=== PATIENT | male | born 1965 | race Caucasian/White ===

== ENCOUNTER 2018-06-21 06:20 | Day surgery (SDC) | payer OTHER, SELFPAY ==
[2018-06-21 06:52] VITALS: BP 142/87; PULSE 76; RESP 16; TEMP 36; BMI 34.5
[2018-06-21] MEDS: SODIUM CHLORIDE 0.9% 1,000 ML 200 ML IV (08:00)
--- NOTE | 2018-06-21 08:12 | PM.HP.1 ---
History of Present Illness Date Patient Seen: 06/21/18 Time Patient Seen: 08:12 Chief complaint: colonoscopy [id number] Narrative: Patient is a gentleman who just turned 53. He is here for screening colonoscopy. He has never had 1. No family history colon cancer. Patient History Medical History Essential hypertension with goal blood pressure less than 130/85 (Chronic) Surgical History History of cataract extraction with lens replacement (Resolved) History of vasectomy (Resolved) Family & Social History Social History: household members spouse Former smoker Meds Home Medications Medication Instructions Recorded Confirmed Type lisinopril 10 mg PO DAILY 06/21/18 06/21/18 History Allergies Allergy/AdvReac Type Severity Reaction Status Date / Time No Known Drug Allergies Allergy Verified 06/21/18 07:11 Review of Systems Review of Systems All systems reviewed & are unremarkable except as noted in HPI and below Exam Vital Signs (past 8 hours): - 06/21/18 06:52 Temperature 96.8 F L Pulse Rate 76 Respiratory Rate 16 Blood Pressure 142/87 H Oxygen Delivery Method Room Air Narrative Exam Narrative: Operative no apparent distress. Eyes nonicteric. Pupils equal round reactive to light. Lungs are clear to auscultation without rales or rhonchi. Heart regular rate and rhythm without murmur gallop. Abdomen is protuberant soft nontender without mass. Small skin tags on right buttock the patient would like to have removed. Alert and oriented x3. Assessment & Plan (1) Screening for colon cancer: Current visit: Yes Status: Acute Plan: Assessment/Plan Narrative: Here for screening colonoscopy. I have discussed the procedure and the rationale with the patient including risks of bleeding, perforation which would necessitate a major operation, failure to find remove all lesions and the potential to tattoo. They appeared to understand and wished to proceed.
--- NOTE | 2018-06-21 08:17 | PM.PREOP ---
Pre-operative Note Interval Note Pre-op Check: Yes History & Physical exam performed today by Physician Changes: No ASA Class (for procedural sedation): II
[2018-06-21] MEDS: MIDAZOLAM 5 MG/5 ML VIAL 4 MG IV (08:41)
[2018-06-21] MEDS: fentaNYL 250 MCG/5 ML INJ IV (08:42)
--- NOTE | 2018-06-21 08:54 | PM.OP.ENDO ---
Operative Date/Time/Diagnoses Date of procedure: 06/21/18 Time of procedure: 08:54 Pre-op diagnosis: Screening examination Post-op diagnosis: same (Clemons colonic diverticulosis) Procedure & Clinicians Study performed: Colonoscopy Same procedure as scheduled: Yes Indications: Screening Surgeon: De Ruffin Procedure Notes SCOAP/Timeout: Perform Procedure in detail: The patient was placed in the left lateral decubitus position and underwent IV sedation directed by the surgeon consisting of fentanyl and Versed. Digital exam was unremarkable. Prostate firm but normal in size.. The scope was inserted and advanced through the rectum into the sigmoid, descending, transverse, and ascending colon. Patient was noted to have diverticulosis scattered throughout the colon. The heaviest concentration was in the sigmoid colon.. The cecum was reached identified by the ileocecal valve and the appendiceal opening. The ileocecal valve was[successfully] cannulated. The terminal ileum was normal in appearance. The scope was gradually brought out. No Polyps were found. The scope ultimately was retroflexed in the rectum. The appearance was normal. The scope was removed and the patient tolerated the procedure well Scope withdrawal time: 8.5 min Sedation minutes: 27 Findings: diverticulosis (Throughout the colon. Heaviest concentration in the sigmoid colon) Specimen(s): none sent Complications: none Recommendations: Colonscopy in 10 years Follow up: as needed Disposition: PACU
[2018-06-21 08:58] VITALS: BP 92/67; PULSE 61; TEMP 36.8
[2018-06-21 09:03] VITALS: BP 110/74; PULSE 77; O2SAT 95
[2018-06-21 09:10] VITALS: BP 109/72; PULSE 82; TEMP 37.4; O2SAT 94
[2018-06-21 09:30] VITALS: BP 107/67; PULSE 82; RESP 20; O2SAT 94
== END 2018-06-21 09:34 | disposition home or self-care (01) ==
PROVIDERS: Visit Provider Specialist
PROC: 0DJD8ZZ Inspection of Lower Intestinal Tract, Via Natural or Artificial Opening Endoscopic (ICD-10-PCS; CPT 45378; principal; 2018-06-21 07:45)
DX: Z12.11 Encounter for screening for malignant neoplasm of colon (principal); K57.30 Diverticulosis of large intestine without perforation or abscess without bleeding; I10 Essential (primary) hypertension; Z87.891 Personal history of nicotine dependence
CPT/HCPCS: 45378; 99152; 99153; J2250; J3010

== ENCOUNTER → 2019-04-25 11:33 | Outpatient (CLI) | payer OTHER, SELFPAY ==
--- NOTE | 2019-04-25 | DI.MRI.S_ITS ---
PROCEDURE: MR KNEE LT WO CON INDICATIONS: Pain in left knee TECHNIQUE: Noncontrast sagittal PD fast spin echo and T2 fast spin echo with fat saturation, sagittal 3-D FLASH with fat saturation; coronal T1 spin echo and PD fast spin echo with fat saturation, and axial PD fast spin echo with fat saturation through the knee. COMPARISON: None. FINDINGS: Image quality: Excellent. Menisci: Medial meniscus appears intact. Lateral meniscal tear involving the body with abnormal signal extending to the undersurface. Cruciate ligaments: The anterior and posterior cruciate ligaments appear intact. Prominent ligament of Arita is incidentally noted (anatomic variant). Medial structures: The medial collateral ligament appears intact. Chronic-appearing insertional semimembranosus tendinopathy. The pes anserinus tendons appear grossly intact. Lateral structures: Low-grade age-indeterminate sprain of the lateral collateral ligament. The long and short heads of the biceps femoris tendon appear intact. The popliteus tendon appears normal; the popliteofibular ligament appears intact. The posterosuperior and anteroinferior popliteomeniscal fascicles appear intact. The arcuate and fabellofibular ligaments appear intact, on either side of the lateral inferior geniculate artery. Iliotibial band appears normal. 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 Patellar alignment is normal. No femoral trochlear dysplasia or ventral trochlear prominence. Prominent fluid seen within the deep infrapatellar bursa, suggesting bursitis. Bones and cartilage: No focal marrow contusion or discrete low signal fracture line. Within the medial compartment, diffuse partial-thickness loss of femoral and tibial articular cartilage. Within the lateral compartment, no focal articular cartilage defects seen Within the patellofemoral compartment, partial-thickness loss and surface fraying of the cartilage overlying the medial and lateral patellar facet, and medial femoral trochlea Joint space: Large joint effusion. No Aceves's cyst. IMPRESSION: Lateral meniscal undersurface tear involving the body. Chronic diffuse patellar tendinopathy. Deep infrapatellar bursitis Mild joint degeneration as above. Large joint effusion. 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 Dictated by: Scot Joya M.D. on 04/25/2019 at 12:59 Approved by: Scot Joya M.D. on 04/25/2019 at 13:11
== END ==
PROVIDERS: Visit Provider Internal Medicine
DX: M25.562 Pain in left knee (principal); S83.282A Other tear of lateral meniscus, current injury, left knee, initial encounter; M67.962 Unspecified disorder of synovium and tendon, left lower leg; M71.562 Other bursitis, not elsewhere classified, left knee; M17.12 Unilateral primary osteoarthritis, left knee; M25.462 Effusion, left knee
CPT/HCPCS: 73721

== ENCOUNTER 2019-12-14 06:50 | Emergency (ER) | payer OTHER, SELFPAY ==
--- NOTE | 2019-12-14 07:06 | ED.SOB ---
HPI - SOB/Dyspnea General Chief Complaint: Shortness of Breath/Dyspnea Stated Complaint: couldn't catch breath this morning Time Seen by Provider: 12/14/19 06:57 Source: patient Mode of arrival: Ambulatory Limitations: no limitations History of Present Illness HPI Narrative: Patient is a 54-year-old male with history of hypertension and sleep apnea presenting with shortness of breath. He has not been wearing his CPAP machine for a while because the part to been broken however this morning he woke up feeling like he could not take a deep breath the his lungs were not expanding. He got up when outside thinking that would help however it did not he continued to feel like he could not take a deep breath he had no chest pain he denies any fever cough. Although he has had upper respiratory symptoms which are overall improving over the last week. He denies any palpitations. No in the emergency department he is feeling significantly improved. This is never happened to him in the past. MD Complaint: shortness of breath Onset (ago): hour(s) Context: recent illness Severity: mild Consistency/Duration: improved Relieving factors: nothing Exacerbating factors: nothing Related Data Home Medications Medication Instructions Recorded Confirmed lisinopril 10 mg PO DAILY 06/21/18 06/21/18 Previous Rx's Medication Instructions Recorded albuterol sulfate 2 puff INHALATION Q4-6H PRN #8.5 12/14/19 gram Allergies Allergy/AdvReac Type Severity Reaction Status Date / Time No Known Drug Allergies Allergy Verified 06/21/18 07:11 Review of Systems Review of Systems Narrative: GENERAL: Denies chills, fatigue, malaise, fever, sweats, travel HEENT: Denies sinus pain, ear pain, sore throat, difficulty swallowing, neck pain RESPIRATORY: See HPI CARDIOVASCULAR: Denies chest pain, palpitations, orthopnea, edema GASTROINTESTINAL: Denies nausea, vomiting, abdominal pain, diarrhea, constipation, melena. : Denies dysuria, frequency, incontinence, hematuria, urinary retention, flank pain. MUSCULOSKELETAL: Denies weakness, joint pain, or bony pain SKIN: No rash, no erythema, no pruritus NEUROLOGIC: Denies weakness, dizziness, headache, numbness, change in speech, confusion PSYCHIATRIC: No concerning psychosocial issues. 12 point review of systems is negative except for those stated above and HPI Patient History Medical History Essential hypertension with goal blood pressure less than 130/85 (Chronic) Surgical History History of cataract extraction with lens replacement (Resolved) History of vasectomy (Resolved) Family History Other Cancer Social History household members: spouse Smoking Status: Never smoker Exam Initial Vital Signs Initial Vital Signs: Vital Signs Temperature 98.8 F 12/14/19 07:12 Pulse Rate 69 12/14/19 07:12 Respiratory Rate 16 12/14/19 07:12 Blood Pressure 159/94 H 12/14/19 07:12 Pulse Oximetry 98 12/14/19 07:12 GENERAL: Alert overweight middle-aged male HEENT: Head atraumatic,EOMI, pupils reactive, face symmetric, moist mucous membranes CARDIOVASCULAR: Regular rate and rhythm without murmurs, rubs or gallops. RESPIRATORY: Breath sounds equal bilaterally, no wheezes rales or rhonchi. ABDOMEN: Soft, nontender. Normoactive bowel sounds all 4 quadrants. No guarding or rebound. EXTREMITIES: Normal range of motion, no clubbing or edema. Neurovascularly intact NEUROLOGICAL: Alert and oriented x4.Normal gait and speech. SKIN: Warm, dry, no laceration, no petechiae, no rashes or lesions. Course Orders Ordered: ED Orders 12/14/19 07:05 Consult to Respiratory Therapy Evaluate & Treat XR chest 1V Stat EKG-12 Lead Stat 12/14/19 07:10 Complete Blood Count AUTO DIFF Stat Comprehensive Metabolic Panel Stat NT-proBNP (BNP-Adult 18+) Stat Troponin & CK Cardiac Panel Stat Discontinued Medications Albuterol (Ventolin) 2.5 mg INH NOW ONE Stop: 12/14/19 08:16 Last Admin: 12/14/19 08:28 Dose: 2.5 mg Documented by: ALONDRA Vital Signs Vital signs: Vital Signs - 8 hr 12/14/19 07:12 12/14/19 08:28 12/14/19 09:11 Temperature 98.8 F Pulse Rate 69 73 71 Respiratory Rate 16 12 16 Blood Pressure 159/94 H 159/64 H Pulse Oximetry 98 98 96 MDM - SOB/Dyspnea Lab Data Attestation: I reviewed the patient's lab results. Result diagrams: 12/14/19 07:10 12/14/19 07:10 Labs: Lab Results 12/14/19 12/14/19 12/14/19 Range/Units 07:10 07:10 07:10 WBC 7.3 (4.5-11.0) X10^3/uL RBC 5.21 (4.5-5.9) X10^6/uL Hgb 14.9 (13.5-17.5) g/dL Hct 43.4 (41-53) % MCV 83.3 (80-100) fL MCH 28.5 (26-34) PG MCHC 34.2 (30-36) % RDW 15.5 H (11.6-14.8) % Plt Count 215 (150-400) X10^3/uL Neut % (Auto) 68.8 (50-75) % Lymph % (Auto) 22.2 L (25-40) % Grady % (Auto) 6.1 (3-14) % Eos % (Auto) 2.5 (2-4) % Baso % (Auto) 0.4 (0-2) % Neut # (Auto) 5000 (9178-2569) /uL Lymph # (Auto) 1600 (5384-8595) /uL Grady # (Auto) 400 (0-900) /uL Eos # (Auto) 200 (0-450) /uL Baso # (Auto) 0 (0-100) /uL Sodium 142 (137-145) mmol/L Potassium 4.2 (3.4-5.1) mmol/L Chloride 103 (98-107) mmol/L Carbon Dioxide 29 (22-32) mmol/L BUN 14 (9-20) mg/dL Creatinine 1.20 (0.66-1.25) mg/dL Estimated GFR > 60.0 (>60) mL/min BUN/Creatinine Ratio 11.7 (6-22) Glucose 122 H (70-100) mg/dL Calcium 9.6 (8.4-10.2) mg/dL Total Bilirubin 0.5 (0.2-1.3) mg/dL AST 36 (17-59) IU/L ALT 42 (<50) IU/L Alkaline Phosphatase 86 (38-126) U/L Total Creatine Kinase 151 (55-170) U/L CK-MB (CK-2) 1.70 (<2.37) ng/mL CK-MB (CK-2) Rel Index 1.1 L (1.5-5.0) % Troponin I < 0.012 (0.01-0.034) ng/mL NT-Pro-B Natriuret Pep 50 (<125) pg/mL Total Protein 8.1 (6.3-8.2) g/dL Albumin 4.6 (3.5-5.0) g/dL Globulin 3.5 (1.7-4.1) g/dL Albumin/Globulin Ratio 1.3 (1.0-2.8) Imaging Data Chest x-ray: Radiologist's Impression: PROCEDURE: XR CHEST 1V INDICATIONS: shortness of breath TECHNIQUE: One view of the chest was acquired. COMPARISON: None. FINDINGS: Surgical changes and devices: None. Lungs and pleura: The mild left hilar prominence on the right is identified with areas of linear increased attenuation. There may be areas of linear increased attenuation at the left lung base. No large effusion or pneumothorax is evident. Mediastinum: Mediastinal contours appear normal. Heart size is normal. Bones and chest wall: No suspicious bony lesions. Overlying soft tissues appear unremarkable. IMPRESSION: Probable atelectasis within the right hilar region and left lung base. Superimposed pneumonia should be excluded clinically. Dictated by: Armond Spicer M.D. on 12/14/2019 at 7:36 ECG Data Attestation: I personally reviewed and interpreted this ECG as follows: Prior ECG tracings: not available for review Interpretation: Normal sinus rhythm rate 63 p.r. interval 191 QRS [address] elevation depression or T-wave inversion MDM Narrative Medical decision making narrative: Patient did receive albuterol treatment here in the emergency department he said it may have helped him a little bit. Symptoms may be related to his most recent upper respiratory viral illness which seems to be improving may also be related to the fact that he does not wear his CPAP machine as he is supposed to do to part. He is taught how to use inhaler with spacer. he has no signs or symptoms to suggest pneumonia. Discharge Plan Departure Patient Disposition: Home Clinical Impression: Mild reactive airways disease Qualifiers: Asthma persistence: unspecified Qualified Code(s): J45.909 - Unspecified asthma, uncomplicated Discharge Date/Time: 12/14/19 09:12 Instructions: DI for Reactive Airway Disease-Adult Activity Restrictions/Additional Instructions: *You have been diagnosed with reactive airway disease *What to do: Recommend outpatient testing of PFTs for pulmonary function testing. This may be related to your most recent viral illness. However blood work is overall reassuring in no sign of pneumonia on x-ray *Continue to take medications as directed Albuterol 1-2 puffs every 4 hours only if needed for difficulty breathing *Follow up with your primary care provider in 2-3 days *Return to ER if you should have increased shortness of breath chest pain or any new, worsening or concerning symptoms Prescriptions: New albuterol sulfate 90 mcg/actuation HFA aerosol inhaler 2 puff INHALATION Q4-6H PRN (Reason: shortness of breath or wheezing) Qty: 8.5 RF: 0 No Action lisinopril 10 mg Tablet 10 mg PO DAILY RF: 0 Referrals: [facility] [Provider Group]
[2019-12-14 07:12] VITALS: BP 159/94; PULSE 69; RESP 16; TEMP 37.1; O2SAT 98; BMI 35.6
[2019-12-14 07:17] LABS: Add Manual Diff / Slide Review NO; Basophils Absolute Auto 0 /uL (0-100); Basophils Percent Auto 0.4 % (0-2); Eosinophils Absolute Auto 200 /uL (0-450); Eosinophils Percent Auto 2.5 % (2-4); Hematocrit 43.4 % (41-53); Hemoglobin 14.9 g/dL (13.5-17.5); Lymphocytes Absolute Auto 1600 /uL (1100-4500); Lymphocytes Percent Auto 22.2 % (25-40); Mean Corpuscular HGB Conc 34.2 % (30-36); Mean Corpuscular Hemoglobin 28.5 PG (26-34); Mean Corpuscular Volume 83.3 fL (80-100); Monocytes Absolute Auto 400 /uL (0-900); Monocytes Percent Auto 6.1 % (3-14); Neutrophils Absolute Auto 5000 /uL (1500-7000); Neutrophils Percent Auto 68.8 % (50-75); Platelet Count 215 X10^3/uL (150-400); Red Blood Cell Count 5.21 X10^6/uL (4.5-5.9); Red Cell Distribution Width 15.5 % (11.6-14.8); White Blood Cell Count 7.3 X10^3/uL (4.5-11.0)
[2019-12-14 07:45] LABS: Alanine Aminotransferase 42 IU/L (<50); Albumin 4.6 g/dL (3.5-5.0); Albumin Globulin Ratio 1.3 (1.0-2.8); Alkaline Phosphatase 86 U/L (38-126); Aspartate Aminotransferase 36 IU/L (17-59); BUN Creatinine Ratio 11.7 (6-22); Bilirubin Total 0.5 mg/dL (0.2-1.3); Blood Urea Nitrogen 14 mg/dL (9-20); Calcium 9.6 mg/dL (8.4-10.2); Carbon Dioxide 29 mmol/L (22-32); Chloride 103 mmol/L (98-107); Creatine Kinase 151 U/L (55-170); Estimated Glomerular Filt Rate > 60.0 mL/min (>60); Globulin 3.5 g/dL (1.7-4.1); Glucose 122 mg/dL (70-100); HEMOLYSIS 23 (0-50); Potassium 4.2 mmol/L (3.4-5.1); Sodium 142 mmol/L (137-145); Total Protein 8.1 g/dL (6.3-8.2)
[2019-12-14 07:54] LABS: NT-proBNP (BNP-Adult 18+) 50 pg/mL (<125)
[2019-12-14 07:57] LABS: Troponin I < 0.012 ng/mL (0.01-0.034)
[2019-12-14 08:00] LABS: CKMB % Relative Index 1.1 % (1.5-5.0)
[2019-12-14 08:28] VITALS: PULSE 73; RESP 12; O2SAT 98
[2019-12-14] MEDS: ALBUTEROL 2.5 MG/3 ML NEB (ADULT) INH (08:28)
[2019-12-14 09:11] VITALS: BP 159/64; PULSE 71; RESP 16; O2SAT 96
== END 2019-12-14 09:12 | disposition home or self-care (01) ==
PROVIDERS: Emergency Provider Emergency Medicine
DX: J45.909 Unspecified asthma, uncomplicated (principal); I10 Essential (primary) hypertension; R06.02 Shortness of breath
CPT/HCPCS: 36415; 71045; 80053; 82550; 82553; 83880; 84484; 85025; 93005; 94640; 99284; 99285; J7613